=== PATIENT | female | born 1940 | race Caucasian/White ===

== ENCOUNTER → 2020-10-20 | Outpatient (CLI) | payer MEDICARE | LOC: RAD 14:55 | PROVIDERS: ATTEND Internal Medicine | DX: M25.472 Effusion, left ankle (principal) ==

== ENCOUNTER → 2024-06-11 | Outpatient (REF) | payer MEDICARE | LOC: RAD 16:28 | PROVIDERS: ATTEND Internal Medicine | DX: Z01.818 Encounter for other preprocedural examination (principal) | CPT/HCPCS: 71046 ==

== ENCOUNTER 2025-06-07 20:38 | Emergency (ER) | payer MEDICARE ==
[~2025-06-07] VITALS: Ht 154.9 cm; Wt 59.9 kg
[2025-06-07 21:33] VITALS: PULSE 67; RESP 14; TEMP 98.3
[2025-06-07] MEDS ORDERED: PREDNISONE 10 MG TAB PO ONE (22:00)
[2025-06-07] MEDS ORDERED: CEPHALEXIN500 MG PO (22:17)
[2025-06-07] MEDS: CEPHALEXIN MONOHYDRATE 250 MG CAP PO ONE (22:42)
[2025-06-07] MEDS: PREDNISONE 20 MG TAB PO ONE (22:43)
[2025-06-07 23:00] VITALS: BP 193/94; O2SAT 98
== END 2025-06-07 22:45 | disposition home or self-care (01) ==
LOC: FSED 21:34
DX: L03.113 Cellulitis of right upper limb (principal); I10 Essential (primary) hypertension
CPT/HCPCS: 99283; J7512